=== PATIENT | female | born 1965 | race Caucasian/White ===

== ENCOUNTER 2016-12-10 17:03 | Emergency (ER) | payer OTHER ==
[~2016-12-10] VITALS: Ht 172.7 cm; Wt 113.4 kg
[2016-12-10 17:10] VITALS: BP 00/00
== END 2016-12-10 17:14 | disposition expired ==
LOC: ED 17:03
DX: I46.9 Cardiac arrest, cause unspecified (principal)
CPT/HCPCS: J0171; J7030